=== PATIENT | male | born 1960 | race Caucasian/White ===

== ENCOUNTER 2018-11-01 02:51 | Emergency (ER) | payer OTHER ==
[2018-11-01] MEDS: HYDROCODONE/APAP (10/325) TAB PO (05:59)
[2018-11-01] MEDS: DEXAMETHASONE 10 MG/ML 1 ML INJ IM (05:59)
[2018-11-01] MEDS: FAMOTIDINE 20 MG TAB PO (06:37)
[2018-11-01] MEDS: KETOROLAC 30 MG INJ IM (06:39)
== END 2018-11-01 06:44 | disposition home or self-care (01) ==
LOC: FTE 02:51
DX: M54.41 Lumbago with sciatica, right side (principal)
CPT/HCPCS: 96372; 99284-25

== ENCOUNTER 2018-11-05 23:32 | Emergency (ER) | payer OTHER ==
[2018-11-06] MEDS: KETOROLAC 30 MG INJ IM (03:22)
[2018-11-06] MEDS: predniSONE 20 MG TAB PO (03:23)
== END 2018-11-06 04:14 | disposition home or self-care (01) ==
LOC: FTE 23:32
DX: S39.012A Strain of muscle, fascia and tendon of lower back, initial encounter (principal); X58.XXXA Exposure to other specified factors, initial encounter; Y92.9 Unspecified place or not applicable
CPT/HCPCS: 96372; 99284-25